=== PATIENT | female | born 1980 | race African-American/Black ===

== ENCOUNTER → 2016-09-16 | Outpatient (CLI) | payer MEDICAID | LOC: FIMAGING 18:48 | PROVIDERS: ATTEND Psychiatry & Neurology Neurology | DX: R20.2 Paresthesia of skin (principal); M79.601 Pain in right arm; M79.602 Pain in left arm ==

== ENCOUNTER → 2016-12-27 | Outpatient (CLI) | payer MEDICAID | LOC: FCPNEURO 23:13 | PROVIDERS: ATTEND Psychiatry & Neurology Sleep Medicine | DX: G47.33 Obstructive sleep apnea (adult) (pediatric) (principal) ==